=== PATIENT | female | born 1980 | race African-American/Black ===

== ENCOUNTER 2017-04-25 16:00 | Emergency (ER) | payer OTHER | END 2017-04-25 16:26 | disposition home or self-care (01) | LOC: ER 16:00 | DX: J06.9 Acute upper respiratory infection, unspecified (principal); H65.01 Acute serous otitis media, right ear | CPT/HCPCS: 99283 ==

== ENCOUNTER 2017-10-08 11:26 | Emergency (ER) | payer OTHER | END 2017-10-08 12:45 | disposition home or self-care (01) | LOC: ER 12:45 | DX: S00.83XA Contusion of other part of head, initial encounter (principal); S20.01XA Contusion of right breast, initial encounter; F17.210 Nicotine dependence, cigarettes, uncomplicated; W20.8XXA Other cause of strike by thrown, projected or falling object, initial encounter; Y93.89 Activity, other specified; Y99.8 Other external cause status; Y92.89 Other specified places as the place of occurrence of the external cause | CPT/HCPCS: 99282 ==

== ENCOUNTER 2017-12-25 19:23 | Emergency (ER) | payer OTHER ==
[~2017-12-25] VITALS: Ht 167.6 cm; Wt 74.8 kg
[~2017-12-25 19:23] MED LIST: AMOX875T PO; CYCL10TA2 PO; IBUP-1007 PO
[2017-12-25 19:47] VITALS: BP 131/71
[2017-12-25] MEDS ORDERED: SULF1TAB24 PO (19:50)
--- NOTE | 2017-12-25 19:50 | PHYS DOC ---
Past Medical History Past Medical History: Other Additional Past Medical Histor: "thyroid problem" Past Surgical History: , Other Additional Past Surgical Histo: ectopic 2001 Alcohol Use: Occasionally Drug Use: None Adult General Chief Complaint Chief Complaint: OTHER COMPLAINTS [facility] Patient is a 37 year old female presents to the ED complaining of left eyebrow infection 2 days ago. Patient states she has had her eyebrow pierced for 4 years without complications. States she went to change her earring 2 days ago and states that she yesenia a little bit of blood. States she's noticed some swelling and discharge from the area since then. Denies headache, fever, neck pain, vision changes, nausea/vomiting, rash or weakness. Review of Systems Review of Systems Constitutional: Denies fever or chills [] Eyes: Denies change in visual acuity, redness, or eye pain [] HENT: Denies nasal congestion or sore throat [] Respiratory: Denies cough or shortness of breath [] Cardiovascular: No additional information not addressed in HPI [] Musculoskeletal: Denies back pain or joint pain [] Integument: Denies rash or skin lesions [] Neurologic: Denies headache, focal weakness or sensory changes [] All other systems were reviewed and found to be within normal limits, except as documented in this note. Allergies Allergies Allergies Coded Allergies Type Severity Reaction Last Updated Verified No Known Drug Allergies 01/19/15 No Physical Exam Physical Exam Constitutional: Well developed, well nourished, no acute distress, non-toxic appearance. [] HENT: Normocephalic, atraumatic, bilateral external ears normal, oropharynx moist, no oral exudates, nose normal. Left eyebrow piercing with yellowish discharge. no abscess or fluctuance.[] Eyes: PERRLA, EOMI, conjunctiva normal, no discharge. [] Cardiovascular:Heart rate regular rhythm, no murmur [] Lungs & Thorax: Bilateral breath sounds clear to auscultation [] Skin: Warm, dry, no erythema, no rash. [] Neurologic: Alert and oriented X 3, normal motor function, normal sensory function, no focal deficits noted. [] Psychologic: Affect normal, judgement normal, mood normal. [] Current Patient Data Vital Signs Vital Signs Date Time Temp Pulse Resp B/P (MAP) Pulse Ox O2 Delivery O2 Flow Rate FiO2 12/25/17 19:47 98.0 67 18 131/71 (91) 98 Room Air 98.0 EKG EKG [] Radiology/Procedures Radiology/Procedures [] Course & Med Decision Making Course & Med Decision Making Pertinent Labs and Imaging studies reviewed. (See chart for details) []Advised patient to remove eyebrow piercing. Patient refused. States she wants to leave it in. Requesting antibiotics. Will discharge with Bactrim. Discussed follow-up and reasons to return to the ED. Patient understands and agrees with plan. Dragon Disclaimer Dragon Disclaimer This electronic medical record was generated, in whole or in part, using a voice recognition dictation system. Departure Departure Impression: Primary Impression: Piercing of left eyebrow with infection Disposition: HOME, SELF-CARE Condition: STABLE Referrals: UNKNOWN PCP NAME (PCP) ROSETTE ROBERT MD Patient Instructions: Piercing Infection, Piercing, Care After Scripts Sulfamethoxazole/Trimethoprim (BACTRIM DS TABLET) 1 Each Tablet 1 TAB PO BID for 10 Days, #20 TAB Prov: CECIL NEVILLE 12/25/17 CECIL NEVILLE Dec 25, 2017 19:50
== END 2017-12-25 20:00 | disposition home or self-care (01) ==
LOC: ER 19:23
DX: L08.89 Other specified local infections of the skin and subcutaneous tissue (principal); Z98.890 Other specified postprocedural states
CPT/HCPCS: 99283

== ENCOUNTER 2018-03-13 12:32 | Emergency (ER) | payer OTHER ==
[~2018-03-13] VITALS: Ht 167.6 cm; Wt 74.8 kg
[~2018-03-13 12:32] MED LIST changes: +SULF1TAB24 PO
[2018-03-13 12:47] VITALS: BP 123/84
[2018-03-13] MEDS ORDERED: CEPH-264 PO (12:57)
--- NOTE | 2018-03-13 12:58 | PHYS DOC ---
Past Medical History Past Medical History: No Pertinent History, Other Additional Past Medical Histor: "thyroid problem" Past Surgical History: , Tubal ligation, Other Additional Past Surgical Histo: ectopic 2001 Alcohol Use: Occasionally Drug Use: None Adult General Chief Complaint Chief Complaint: OTHER COMPLAINTS [facility] HPI Patient is a 37 year old female who presents with an infection to her eyebrow piercing. The patient states that she noted some drainage coming from the piercing site. She states that she had a keep piercing in and was thinking that she might be having a reaction to that sheet metal. She states that she had the piercing change 6 days ago to a stainless steel piercing. It is continuing to have erythema and some drainage. Review of Systems Review of Systems Constitutional: Denies fever or chills [] Respiratory: Denies cough or shortness of breath [] Cardiovascular: No additional information not addressed in HPI [] GI: Denies abdominal pain, nausea, vomiting, bloody stools or diarrhea [] : Denies dysuria or hematuria [] Musculoskeletal: Denies back pain or joint pain [] Integument: See history of present illness Neurologic: Denies headache, focal weakness or sensory changes [] Endocrine: Denies polyuria or polydipsia [] All other systems were reviewed and found to be within normal limits, except as documented in this note. Allergies Allergies Allergies Coded Allergies Type Severity Reaction Last Updated Verified No Known Drug Allergies 01/19/15 No Physical Exam Physical Exam Constitutional: Well developed, well nourished, no acute distress, non-toxic appearance. [] Cardiovascular:Heart rate regular rhythm, no murmur [] Lungs & Thorax: Bilateral breath sounds clear to auscultation [] Abdomen: Bowel sounds normal, soft, no tenderness, no masses, no pulsatile masses. [] Skin: Erythema and drainage noted to the patient's left eyebrow piercing Neurologic: Alert and oriented X 3, normal motor function, normal sensory function, no focal deficits noted. [] Psychologic: Affect normal, judgement normal, mood normal. [] Current Patient Data Vital Signs Vital Signs Date Time Temp Pulse Resp B/P (MAP) Pulse Ox O2 Delivery O2 Flow Rate FiO2 03/13/18 12:47 97.9 69 18 123/84 (97) 98 Room Air 97.9 EKG EKG [] Radiology/Procedures Radiology/Procedures [] Course & Med Decision Making Course & Med Decision Making Pertinent Labs and Imaging studies reviewed. (See chart for details) [] Staff Physician Addendum: I was working in the ER during the course of this patient's visit. I was available for consultation as needed, but I was not directly involved in the care of this patient. Dragon Disclaimer Dragon Disclaimer This electronic medical record was generated, in whole or in part, using a voice recognition dictation system. Departure Departure Impression: Primary Impression: Piercing of left eyebrow with infection Disposition: HOME, SELF-CARE Condition: STABLE Referrals: UNKNOWN PCP NAME (PCP) Patient Instructions: Skin Infections Additional Instructions: Take the antibiotic as directed. Follow-up for your scheduled recheck. If worsening return to the emergency department. Do not remove the piercing as it will allow the infection to drain. Scripts Cephalexin (KEFLEX) 500 Mg Capsule 1 CAP PO TID for infection, #30 CAP Prov: DONITA LOPEZ APRN 03/13/18 DONITA LOPEZ APRN Mar 13, 2018 12:58 SARAN CLOUD MD Mar 14, 2018 12:33
== END 2018-03-13 13:23 | disposition home or self-care (01) ==
LOC: ER 12:32
DX: L08.89 Other specified local infections of the skin and subcutaneous tissue (principal)
CPT/HCPCS: 99283

== ENCOUNTER 2018-03-27 17:34 | Emergency (ER) | payer OTHER ==
[~2018-03-27] VITALS: Ht 167.6 cm; Wt 74.8 kg
[~2018-03-27 17:34] MED LIST changes: +CEPH-264 PO
[2018-03-27 17:52] VITALS: BP 130/76
[2018-03-27] MEDS ORDERED: TRIA15OI TP (18:14)
--- NOTE | 2018-03-27 18:14 | PHYS DOC ---
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 Patient denies any fever. Patient has tried [id number] medications including Benadryl and hydrocortisone no relief. Review of Systems Review of Systems Constitutional: Denies fever or chills [] GI: Denies abdominal pain, nausea, vomiting, bloody stools or diarrhea [] : Denies dysuria or hematuria [] Musculoskeletal: Denies back pain or joint pain [] Integument: Reports,insect bites to bilateral upper extremities and left abdomen All other systems were reviewed and found to be within normal limits, except as documented in this note. Allergies Allergies Allergies Coded Allergies Type Severity Reaction Last Updated Verified No Known Drug Allergies 01/19/15 No Physical Exam Physical Exam Constitutional: Well developed, well nourished, no acute distress, non-toxic appearance. [] Skin: Warm, dry, small amount of erythematous area noted on the left lateral abdomen, left upper extremity and right triceps consistent with insect bites. Back: No tenderness, no CVA tenderness. [] Extremities: No tenderness, no cyanosis, no clubbing, ROM intact, no edema. [] Neurologic: Alert and oriented X 3, normal motor function, normal sensory function, no focal deficits noted. [] Psychologic: Affect normal, judgement normal, mood normal. [] Current Patient Data Vital Signs Vital Signs Date Time Temp Pulse Resp B/P (MAP) Pulse Ox O2 Delivery O2 Flow Rate FiO2 03/27/18 17:52 98.7 92 16 130/76 (94) 97 98.7 EKG EKG [] Radiology/Procedures Radiology/Procedures [] Course & Med Decision Making Course & Med Decision Making Pertinent Labs and Imaging studies reviewed. (See chart for details) This is a 37 year old female presented to the ED today with insect bites. Tetanus up-to-date. Discharged with triamcinolone cream. Encouraged to continue taking Benadryl. Follow-up with PCP in 1-2 weeks. Importance of hygiene emphasis. Dragon Disclaimer Dragon Disclaimer This electronic medical record was generated, in whole or in part, using a voice recognition dictation system. Departure Departure Impression: Primary Impression: Insect bites Disposition: HOME, SELF-CARE Condition: STABLE Referrals: UNKNOWN PCP NAME (PCP) Follow-up with your doctor in 1-2 weeks Patient Instructions: Insect Bite, [id number] Additional Instructions: You were evaluated in the emergency room for insect bites. Ensure you maintain good hygiene at home by cleaning everything up. Take Benadryl every 6 hours as needed. Use the prescribed cream as ordered. Scripts Triamcinolone Acetonide (TRIAMCINOLONE ACETONIDE 0.1% OINT) 15 Gm Oint...g. 1 JIM TP BID for WOUND CARE, #1 TUBE Prov: NOLVIA FONTAINE [employer]ISH[employer]PERVISOR 03/27/18 Problem Qualifiers Primary Impression: Insect bites Encounter type: initial encounter Site of insect bite: unspecified site Qualified Codes: W57.XXXA - Bitten or stung by nonvenomous insect and other nonvenomous arthropods, initial encounter N[employer] Mar 27, 2018 18:14
== END 2018-03-27 18:26 | disposition home or self-care (01) ==
LOC: ER 17:34
DX: S60.562A Insect bite (nonvenomous) of left hand, initial encounter (principal); S60.561A Insect bite (nonvenomous) of right hand, initial encounter; S30.861A Insect bite (nonvenomous) of abdominal wall, initial encounter; Z98.890 Other specified postprocedural states; Z98.51 Tubal ligation status; W57.XXXA Bitten or stung by nonvenomous insect and other nonvenomous arthropods, initial encounter; Y93.89 Activity, other specified; Y92.89 Other specified places as the place of occurrence of the external cause; Y99.8 Other external cause status
CPT/HCPCS: 99283

== ENCOUNTER 2018-07-25 13:15 | Emergency (ER) | payer OTHER, SELFPAY ==
[~2018-07-25] VITALS: Ht 167.6 cm; Wt 72.1 kg
[~2018-07-25 13:15] MED LIST changes: +TRIA15OI TP
[2018-07-25 13:38] VITALS: BP 121/71
--- NOTE | 2018-07-25 14:05 | PHYS DOC ---
Past Medical History Past Medical History: No Pertinent History, Other Additional Past Medical Histor: "thyroid problem" Past Surgical History: , Tubal ligation, Other Additional Past Surgical Histo: ectopic 2001 Alcohol Use: Occasionally Drug Use: None Adult General Chief Complaint Chief Complaint: LOWER BACK PAIN OR INJURY [facility] HPI Patient is a 37 year old female presents to ED complaining of back pain 2 days ago. 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 Describes the pain as sharp. Rates pain as 6 out of 10. States she has pain with range of motion. Denies bowel/bladder changes, saddle anesthesia, radiating pain, weakness, paresthesias, chest pain, shortness of breath or fever. Review of Systems Review of Systems Constitutional: Denies fever or chills [] Eyes: Denies change in visual acuity, redness, or eye pain [] HENT: Denies nasal congestion or sore throat [] Respiratory: Denies cough or shortness of breath [] Cardiovascular: No additional information not addressed in HPI [] GI: Denies abdominal pain, nausea, vomiting, bloody stools or diarrhea [] : Denies dysuria or hematuria [] Musculoskeletal: Complains of back pain. Integument: Denies rash or skin lesions [] Neurologic: Denies headache, focal weakness or sensory changes [] All other systems were reviewed and found to be within normal limits, except as documented in this note. Current Medications Current Medications Current Medications Medications (Trade) Dose Ordered Sig/Radu Start Time Stop Time Status Last Admin Dose Admin Acetaminophen/ Hydrocodone Bitart (Lortab 5/325) 1 tab 1X ONCE 07/25/18 14:15 07/25/18 14:16 DC 07/25/18 14:31 1 TAB Allergies Allergies Allergies Coded Allergies Type Severity Reaction Last Updated Verified No Known Drug Allergies 01/19/15 No Physical Exam Physical Exam Constitutional: Well developed, well nourished, no acute distress, non-toxic appearance. [] HENT: Normocephalic, atraumatic Neck: Normal range of motion, no tenderness, supple, no stridor. [] Cardiovascular:Heart rate regular rhythm, no murmur [] Lungs & Thorax: Bilateral breath sounds clear to auscultation [] Abdomen: Bowel sounds normal, soft, no tenderness, no masses, no pulsatile masses. [] Skin: Warm, dry, no erythema, no rash. [] Back: mild lumbar paraspinal tenderness, FROM. NV intact. NO overlying skin changes. no CVA tenderness. [] Extremities: No tenderness, no cyanosis, no clubbing, ROM intact, no edema. [] Neurologic: Alert and oriented X 3, normal motor function, normal sensory function, no focal deficits noted. DTR's intact.[] Psychologic: Affect normal, judgement normal, mood normal. [] Current Patient Data Vital Signs Vital Signs Date Time Temp Pulse Resp B/P (MAP) Pulse Ox O2 Delivery O2 Flow Rate FiO2 07/25/18 14:31 16 99 Room Air 07/25/18 13:38 99.0 88 121/71 (88) 99.0 EKG EKG [] Radiology/Procedures Radiology/Procedures []PROCEDURE: LUMBAR SPINE 2-3V Three-view lumbar spine series Clinical indications: Injury and back pain. FINDINGS: The transverse processes are intact. No compression fracture or discitis or lytic process or anterolisthesis is evident. No significant degenerative disc space narrowing is seen throughout the lumbar spine. Mild degenerative endplate spurring is seen L4-5. IMPRESSION: No acute compression fracture. Course & Med Decision Making Course & Med Decision Making Pertinent Labs and Imaging studies reviewed. (See chart for details) Discussed imaging findings with patient. Patient's pain improved in the ED. States she's feeling much better. Patient able to ambulate without assistance. No focal neural deficits. Discussed symptomatic treatment and follow up outpatient. Provided contact information/education. Discussed reasons to return to the ED. Patient understands and agrees with plan. Dragon Disclaimer Dragon Disclaimer This electronic medical record was generated, in whole or in part, using a voice recognition dictation system. Departure Departure Impression: Primary Impression: Back pain Additional Impression: Muscle strain Disposition: 01 HOME, SELF-CARE Condition: IMPROVED Referrals: UNKNOWN PCP NAME (PCP) BISMARK GOOD II, MD Patient Instructions: Back Pain, Adult, Muscle Strain Scripts Ibuprofen (IBUPROFEN) 800 Mg Tablet 800 MG PO PRN Q6HRS PRN for INFLAMMATION, #20 TAB Prov: CECIL NEVILLE 07/25/18 Cyclobenzaprine Hcl (CYCLOBENZAPRINE HCL) 5 Mg Tablet 1 TAB PO QHS, #30 TAB Prov: CECIL NEVILLE 07/25/18 Problem Qualifiers CECIL NEVILLE July 25, 2018 14:05
[2018-07-25] MEDS ORDERED: HYDROcodone/APAP 5/325MG 1 TAB TABLET PO ONE (14:15)
--- NOTE | 2018-07-25 14:35 | RAD ---
Three-view lumbar spine series Clinical indications: Injury and back pain. FINDINGS: The transverse processes are intact. No compression fracture or discitis or lytic process or anterolisthesis is evident. No significant degenerative disc space narrowing is seen throughout the lumbar spine. Mild degenerative endplate spurring is seen L4-5. IMPRESSION: No acute compression fracture. Electronically signed by: Tu Proctor MD (07/25/2018 2:32 PM) [id number]
[2018-07-25] MEDS ORDERED: CYCL5TAB PO (14:58)
[2018-07-25] MEDS ORDERED: IBUP-1060 PO (14:58)
== END 2018-07-25 15:12 | disposition home or self-care (01) ==
LOC: ER 13:15
DX: S39.012A Strain of muscle, fascia and tendon of lower back, initial encounter (principal); Z98.890 Other specified postprocedural states; Z98.51 Tubal ligation status; X50.9XXA Other and unspecified overexertion or strenuous movements or postures, initial encounter; Y93.89 Activity, other specified; Y92.89 Other specified places as the place of occurrence of the external cause; Y99.0 Civilian activity done for income or pay
CPT/HCPCS: 72100; 99284

== ENCOUNTER 2020-06-29 09:58 | Emergency (ER) | payer MEDICAID, OTHER ==
[~2020-06-29] VITALS: Ht 167.6 cm; Wt 77.0 kg
[~2020-06-29 09:58] MED LIST changes: +CYCL5TAB PO; +IBUP-1060 PO
[2020-06-29 10:15] VITALS: BP 138/73
[2020-06-29 10:47] LABS: BILIRUBIN,URINE NEGATIVE (NEG); CLARITY,URINE CLEAR; COLOR,URINE YELLOW; NITRITE,URINE NEGATIVE (NEG); PH,URINE 6.5 (<5.0-8.0); PROTEIN,URINE NEGATIVE (NEG-TRACE); UROBILINOGEN,URINE 0.2 mg/dL (0.2 mg/dL)
--- NOTE | 2020-06-29 10:58 | ED.ADGEN ---
Past Medical History Past Medical History: No Pertinent History, Other Additional Past Medical Histor: "thyroid problem" Past Surgical History: , Tubal ligation, Other Additional Past Surgical Histo: ectopic 2001 Smoking Status: Current Every Day Smoker Alcohol Use: Occasionally Drug Use: None General Adult EDM: Chief Complaint: LOWER BACK PAIN OR INJURY HPI: HPI: Patient is a 39 year old AA female who presents emergency department with complaints of bilateral lower back pain since yesterday. She denies any recent injury, increased workload, or heavy lifting. Patient denies any dysuria, hematuria, difficulty urinating, or foul-smelling urine. She states that she did have a day last week where she noticed some increased urinary frequency but attributed that to increase water intake that day. She denies any fever, cough, shortness of breath, nausea, vomiting, diarrhea, body aches, fatigue, abdominal pain, chest pain, or palpitations. Patient reports that at times it feels like her back is spasming. She denies any radiation of the pain to her lower extremities or upper back. She currently rates the pain 8 out of 10 on the pain scale, she denies any alleviating factors, the pain is worse with movement. Review of Systems: Review of Systems: Complete ROS is negative unless otherwise noted in HPI. Allergies: Allergies: Allergies Coded Allergies Type Severity Reaction Last Updated Verified No Known Drug Allergies 01/19/15 No Physical Exam: PE: See Above Constitutional: Well developed, well nourished, no acute distress, non-toxic appearance. [] HENT: Normocephalic, atraumatic, bilateral external ears normal, nose normal. [] Eyes: PERRLA, EOMI, conjunctiva normal, no discharge. [] Neck: Normal range of motion, no stridor. [] Cardiovascular:Heart rate regular rhythm Lungs & Thorax: Respirations even and unlabored, no retractions, no respiratory distress Back: No bony tenderness, bilateral lumbar paraspinal tenderness to palpation with palpable muscle spasms in the lower left lumbar area, negative straight leg lift bilaterally Skin: Warm, dry, no erythema, no rash. [] Extremities: No cyanosis, ROM intact, no edema. [] Neurologic: Alert and oriented X 3, normal sensation, normal motor, No focal deficits noted. [] Psychologic: Affect normal, judgement normal, mood normal. [] Current Patient Data: Labs: Laboratory Tests Test 06/29/20 10:20 Urine Collection Type Unknown Urine Color Yellow Urine Clarity Clear Urine pH 6.5 (<5.0-8.0) Urine Specific [place] 1.025 (1.000-1.030) Urine Protein Negative mg/dL (NEG-TRACE) Urine Glucose (UA) Negative mg/dL (NEG) Urine Ketones (Stick) Negative mg/dL (NEG) Urine Blood Moderate (NEG) Urine Nitrite Negative (NEG) Urine Bilirubin Negative (NEG) Urine Urobilinogen Dipstick 0.2 mg/dL (0.2 mg/dL) Urine Leukocyte Esterase Negative (NEG) Urine RBC 11-20 /HPF (0-2) Urine WBC Occ /HPF (0-4) Urine Squamous Epithelial Cells Many /LPF Urine Bacteria 0 /HPF (0-FEW) Urine Mucus Mod /LPF POC Urine HCG, Qualitative Hcg negative (Negative) EKG: EKG: [] Heart Score: C/O Chest Pain: No Risk Scores: Score 0 - 3: 2.5% MACE over next 6 weeks - Discharge Home Score 4 - 6: 20.3% MACE over next 6 weeks - Admit for Clinical Observation Score 7 - 10: 72.7% MACE over next 6 weeks - Early Invasive Strategies Radiology/Procedures: Radiology/Procedures: [] Course & Med Decision Making: Course & Med Decision Making Pertinent Labs and Imaging studies reviewed. (See chart for details) 39-year-old female presented to the emergency department complaints of bilateral lower back pain that started yesterday. There is muscle spasms in the left lumbar paraspinal region on physical exam. UA reveals 11-20 red blood cells otherwise unremarkable, per review of patient's previous UA she also had 11-20 red blood cells at that time. Patient denied any urinary complaints or flank pain. Back pain did not radiate. Prescriptions written for naproxen and Flexeril. Recommended application of heat or ice as needed for comfort may also use topical analgesics such as Biofreeze, IcyHot, or BenGay. Follow-up with primary care doctor in 1 to 2 days, return to the ER symptoms worsen or fever develops. Patient verbalized an understanding of home care, medications, follow-up, and return to ED instructions and was in agreement with the plan of care. [] Dragon Disclaimer: Dragon Disclaimer: This electronic medical record was generated, in whole or in part, using a voice recognition dictation system. Departure Departure Impression: Primary Impression: Spasm of paraspinal muscle Additional Impression: Pain of paraspinal muscle Disposition: HOME / SELF CARE / HOMELESS Condition: STABLE Referrals: DALIA SINGH (PCP) Patient Instructions: Low Back Strain with [facility] Additional Instructions: Fill the prescription(s) and use as directed. Apply heat or ice for to sore areas as needed for comfort. Activity as tolerated. Follow up with your primary care doctor this week if symptoms persist, return to the ER if symptoms worsen or you develop a fever. Scripts Cyclobenzaprine Hcl (CYCLOBENZAPRINE HCL) 10 Mg Tablet 1 TAB PO TID PRN for MUSCLE PAIN for 10 Days, #30 TAB 0 Refills Prov: ANGELO PETIT APRN 06/29/20 Naproxen (NAPROXEN) 500 Mg Tablet 1 TAB PO BID PRN for PAIN for 10 Days, #20 TAB 0 Refills Prov: ANGELO PETIT APRN 06/29/20 Problem Qualifiers ANGELO PETIT APRN Jun 29, 2020 10:58
[2020-06-29 11:06] LABS: BACTERIA,URINE 0 /HPF (0-FEW); WBC,URINE OCC /HPF (0-4)
[2020-06-29] MEDS ORDERED: NAPR-514 PO (11:13)
[2020-06-29] MEDS ORDERED: CYCL10TA2 PO (11:13)
== END 2020-06-29 11:26 | disposition home or self-care (01) ==
LOC: ER 09:58
DX: M62.830 Muscle spasm of back (principal); F17.200 Nicotine dependence, unspecified, uncomplicated; Z98.51 Tubal ligation status
CPT/HCPCS: 81001; 81025; 99283

== ENCOUNTER 2021-06-08 16:48 | Emergency (ER) | payer OTHER ==
[~2021-06-08] VITALS: Ht 167.6 cm; Wt 72.7 kg
[~2021-06-08 16:48] MED LIST changes: +CYCL10TA19 PO; -CYCL10TA2 PO; +NAPR-514 PO
[2021-06-08 17:40] VITALS: BP 129/66
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
[2021-06-08] MEDS ORDERED: IBUP-1007 PO (21:05)
[2021-06-08] MEDS ORDERED: ACET325T9 PO (21:05)
== END 2021-06-08 20:55 | disposition home or self-care (01) ==
LOC: ER 16:48
DX: M54.50 Low back pain, unspecified (principal); M54.6 Pain in thoracic spine; F17.200 Nicotine dependence, unspecified, uncomplicated; Z98.51 Tubal ligation status
CPT/HCPCS: 70150; 72072; 72100; 99284